=== PATIENT | female | born 1950 | race Caucasian/White ===

== ENCOUNTER 2019-01-18 07:59 | Day surgery (SDC) | payer MEDICARE, OTHER ==
[~2019-01-18] VITALS: Ht 172.7 cm; Wt 75.9 kg
[~2019-01-18 07:59] MED LIST: PROZAC20 MG PO; VICODIN PO
[2019-01-18] MEDS ORDERED: EFFEXOR XR150 MG PO (08:50)
[2019-01-18] MEDS ORDERED: LEVOTHYROXINE50 MCG PO (08:50)
[2019-01-18] MEDS ORDERED: CYCLOBENZAPRINE5 MG PO (08:51)
[2019-01-18] MEDS ORDERED: MOBIC7.5 MG PO (08:51)
[2019-01-18] MEDS ORDERED: TYLENOL ARTHRI650 MG PO (08:52)
[2019-01-18] MEDS ORDERED: VITAMIN C500 M1 PO (08:52)
[2019-01-18 08:59] VITALS: BP 136/67; Ht 172.7 cm; Wt 75.9 kg
[2019-01-18 08:59] LABS: HEMATOCRIT 39.6 % (36.0-48.0); MCH 32.3 pg (26.0-34.0); MCHC 35.4 g/dL (31.0-37.0); MCV 91.5 fL (80.0-100.0); MEAN PLATELET VOLUME 9.2 fL (7.4-10.4); RBC 4.33 10x6/uL (4.00-5.40)
--- NOTE | 2019-01-18 11:02 | NUR ---
DC INSTRUCTIONS GIVEN TO PT. STATES UNDERSTANDING. DC'D IV CATH FULLY INTACT.
--- NOTE | 2019-01-18 11:30 | NUR ---
PT LEFT UNIT VIA WC AT 1110
--- NOTE | 2019-01-19 18:12 | OP ---
PATIENT NAME: SANDEEP DUMONT [facility] MEDICAL RECORD: [id number] :52 LOCATION:[place] ADMISSION DATE: SURGEON: CONSTANCE HESS DO DATE OF OPERATION: 01/18/2019 PROCEDURE: Colonoscopy with polypectomy. INDICATIONS FOR PROCEDURE: Screening for colorectal cancer, history of colon polyps, family history positive for colon cancer in the patient's father. SCOPE: Olympus video pediatric colonoscope. MEDICATIONS: Propofol 420 mg IV per anesthesia. WITHDRAWAL TIME: 15 minutes. ESTIMATED BLOOD LOSS: Minimal. COMPLICATIONS: None. FINDINGS: Informed consent was given. The patient was made comfortable with the above medication. After reaching an adequate level of sedation by slow IV push, the patient was placed on her left side. A digital rectal examination was performed and was normal. The endoscope was then advanced under direct visualization through the rectum to the cecum, confirmed by the presence of the appendiceal orifice and ileocecal valve. The endoscope was slowly withdrawn and mucosa was carefully examined. The prep quality was good. There were multiple polyps visualized on today's examination. In the ascending colon, there were four separate polyps. The largest measured approximately 1 cm in size. It was removed using endoscopic mucosal resection technique. A saline pillow was injected underneath the polyp base followed by a hot snare polypectomy in 1 piece. There were 2 polyps, which ranged in size from 5 mm to 7 mm in size. They were removed using a hot snare in 1 piece and completely retrieved. Small polyp measured approximately 3 mm in diameter and was removed using hot forceps. In the descending colon, there were two separate polyps, which were sessile. They ranged in size from 3-5 mm in diameter. They were both removed using a hot snare in 1 piece and completely retrieved. There was evidence of mild diverticulosis involving the descending and sigmoid colon. Retroflexion was performed in the rectum with visualization of grade I internal hemorrhoids without bleeding. The endoscope was withdrawn from the patient. The patient tolerated the procedure well and there were no complications. IMPRESSION: 1. Four polyps as described above, removed using a combination of endoscopic mucosal resection technique, hot snare, and hot forceps. 2. Diverticulosis involving the descending and sigmoid colon. 3. Grade I internal hemorrhoids without bleeding. PLAN AND RECOMMENDATIONS: 1. Discharge home when recovery parameters are met. 2. Follow up biopsy specimen results. 3. High fiber diet. 4. Continue current medications. 5. Supplement diet with MiraLax as needed for constipation. 6. Recall colonoscopy in 2 years based on number, size, and types of polyps OPERATIVE REPORT [id number] SANDEEP DUMONT removed on today's examination. TRANSINT:[id number] Voice Confirmation ID: [id number] DOCUMENT ID: [id number] CONSTANCE HESS DO at 1812 CC: [id number] DICTATION DATE: 01/18/19 1020 [facility]: 01/18/19 1110 [facility] 01/18/19 [facility] [address] [place] [address]
== END 2019-01-18 11:10 | disposition home or self-care (01) ==
LOC: D.OPS 07:59
PROVIDERS: Anesthesiology; ATTEND Internal Medicine Gastroenterology
DX: Z12.11 Encounter for screening for malignant neoplasm of colon (principal); Z86.010 Personal history of colon polyps; Z80.0 Family history of malignant neoplasm of digestive organs; K63.5 Polyp of colon